=== PATIENT | female | born 1960 | race Caucasian/White ===

== ENCOUNTER 2017-02-21 23:50 | Emergency (ER) | payer SELFPAY ==
[2017-02-21 23:52] VITALS: BP 129/75; PULSE 117; RESP 20; TEMP 98.4; O2SAT 93; BMI 29.0
[2017-02-22] MEDS: Albuterol-Ipratrop 3 mg / 0.5 (3 ml) UD IH SCH ×3 (00:30→01:19)
[2017-02-22 00:41] LABS: ADD MANUAL DIFF? NO
[2017-02-22 00:50] LABS: BASO # 0.03 K/mm3 (0.0-2.0); BASO % 0.6 % (0.0-3.0); EOS # 0.2 (0.0-0.7); GRAN # 1.92 (1.4-6.5); GRAN % 39.9 % (50.0-68.0); HEMATOCRIT 38.7 % (36.0-48.0); LYMPH # 2.1 (1.2-3.4); LYMPH % 43.5 % (22.0-35.0); MEAN CELL VOLUME 86.4 fL (80.0-105.0); MEAN CORPUSCULAR HEMOGLOBIN 29.5 pg (25.0-35.0); MEAN CORPUSCULAR HGB CONC 34.1 g/dl (31.0-37.0); MEAN PLATELET VOLUME 9.8 fl (7.0-11.0); MONO # 0.5 (0.1-0.6); PLATELET COUNT 271 10^3/uL (120.0-450.0); RED CELL DISTRIBUTION WIDTH 13.6 % (11.5-14.5); WHITE BLOOD COUNT 4.8 10^3/ul (4.5-11.0)
[2017-02-22 01:00] LABS: ALKALINE PHOSPHATASE 102 U/L (38-133); ALT/SGPT 26 U/L (7-56); AST/SGOT 26 U/L (15-39); BILIRUBIN,TOTAL 0.8 mg/dL (0.2-1.3); BLOOD UREA NITROGEN 24 mg/dL (7-21); CALCIUM 9.3 mg/dL (8.4-10.5); CARBON DIOXIDE 28 mmol/L (21-33); CHLORIDE 102 mmol/L (98-107); GFR AFRICAN-AMERICAN > 60; GLUCOSE,RANDOM 152 mg/dL (70-110); LIPASE 128 U/L (23-300); POTASSIUM 4.1 mmol/L (3.6-5.0); SODIUM 140 mmol/L (132-148); TOTAL PROTEIN 8.1 g/dL (5.8-8.3)
[2017-02-22 01:13] LABS: TROPONIN I < 0.01 ng/mL
--- NOTE | 2017-02-22 02:29 | ED PDOC ---
Arrival/HPI - General Chief Complaint: Respiratory Distress Time Seen by Provider: 02/22/17 00:18 Historian: Patient EM Caveat: Language Barrier (Language line was used, supervisor dumping was provided to the patient) - History of Present Illness Narrative History of Present Illness (Text): 02/22/17 02:31 Patient past medical history of asthma, reports 2 history of dyspnea and wheezing despite treatment with Ventolin and Advair. Episode apparently precipitated by cough. (-) fever; (+) cough; (-) sputum production, (+) L sided chest pain. Patient has previous history of emergency department visits. Patient complains of 3 month history of intermittent left upper quadrant abdominal pain, most prominent today, states that she has seen her doctor regarding her symptoms was prescribed medication, which she is taking with no relief. States she was advised by her doctor to go to outpatient endoscopy which she is not scheduled yet, has not had an other diagnostic test such as an US or a CT. Otherwise: (-) vomiting, (-) diarrhea, (-) fever, (-) melena, (-) urinary symptoms, (-) hematochezia. Has no history of prior abdominal surgery. Past Medical History - Provider Review Nursing Documentation Reviewed: Yes - Reproductive Menopause: Yes - Cardiac Hx Cardiac Disorders: No - Pulmonary Hx Respiratory Disorders: Yes Hx Asthma: Yes - Neurological Hx Neurological Disorder: No - HEENT Hx HEENT Disorder: No - Renal Hx Renal Disorder: No - Endocrine/Metabolic Hx Endocrine Disorders: No - Hematological/Oncological Hx Blood Disorders: No - Integumentary Hx Dermatological Disorder: No - Musculoskeletal/Rheumatological Hx Musculoskeletal Disorders: No - Gastrointestinal Hx Gastrointestinal Disorders: No - Genitourinary/Gynecological Hx Genitourinary Disorders: No - Psychiatric Hx Psychophysiologic Disorder: No Hx Substance Use: No Family/Social History - Physician Review Nursing Documentation Reviewed: Yes Family/Social History: No Known Family HX Smoking Status: Never Smoked Hx Alcohol Use: No Hx Substance Use: No Allergies/Home Meds Allergies/Adverse Reactions: Allergies No Known Allergies Allergy (Verified 02/21/17 23:51) Home Medications: Home Meds Medication Instructions Recorded Confirmed Albuterol HFA [Ventolin HFA 90 2 puff IH PRN PRN 02/21/17 02/21/17 mcg/actuation (8 g)] Review of Systems - Review of Systems Constitutional: Normal. absent: Fatigue, Weight Change, Fevers ENT: Normal, Hearing Changes. absent: Rhinorrhea, Sinus Congestion Respiratory: Normal, Cough. absent: SOB, Sputum, Wheezing Cardiovascular: Normal. absent: Chest Pain, Palpitations Gastrointestinal: Normal, Abdominal Pain. absent: Stool Changes, Appetite Changes Genitourinary Female: Normal. absent: Dysuria, Frequency, Hematuria Musculoskeletal: Normal. absent: Arthralgias, Back Pain, Neck Pain Skin: Normal. absent: Rash, Pruritis, Skin Lesions Physical Exam - Physical Exam Narrative Physical Exam (Text): 02/22/17 02:39 GENERAL APPEARANCE: Patient is awake, alert, oriented x 3, in mild respiratory and painful distress. SKIN: Warm, dry; (-) cyanosis. EYES: (-) conjunctival pallor. ENMT: Mucous membranes moist. Airway patent: (-) stridor. Pharynx: (-) swelling, (-) erythema. NECK: (-) tenderness, (-) stiffness, (-) lymphadenopathy. CHEST AND RESPIRATORY: (+) bilateral inspiratory and expiratory wheezing; (-) rales, (-) rhonchi, (-) rub; breath sounds equal bilaterally. HEART AND CARDIOVASCULAR: (-) irregularity; (-) murmur, (-) gallop. ABDOMEN AND GI: Soft; (+) LUQ tenderness, (-) guaridng, (-) rebound. EXTREMITIES: (-) deformity, (-) edema. NEURO AND PSYCH: Mental status as above; (-) focal findings. Vital Signs Temp Pulse Resp BP Pulse Ox 02/21/17 23:55 20 02/21/17 23:52 98.4 F 117 H 20 129/75 93 L Medical Decision Making ED Course and Treatment: 02/22/17 02:26 56 yo F with pmh of asthma, presents with wheezing, SOB, and abdominal pain. Plan: -- Labs -- IV fluids -- Urinalysis -- EKG -- CXR -- Solumedrol IV / duonebs x3 -- Reassess and disposition -- CT AP ordered 02/22/17 02:40 Labs reviewed, and are wnl. CXR shows NAD. On re-evaluation, patient reports feeling much improved with no chest pain or shortness of breath. Patient reports improvement of abdominal pain. On exam, lungs area clear, no wheezing, no rhonchi, no rales. Abdomen remains soft with mild LUQ tenderness, no guarding , no rebound. Considering patient's history and exam, CT of A/P w/ IV contrast will be ordered, however the patient is refusing. She states that she does not want to have the CT due to the contrast. A noncontrast CT of A/P was offered, but she still refused. She states that she feels that she does not need the CT at this time and she would rather follow up with her pmd. Patient refuses further care, evaluation or treatment in the ER. Patient informed of the reasons for the following and planned treatment, which patient understands, however still refuses. Patient informed of the risk and benefits of treatment. Informed that the risk could include worsening of current conditions, undiagnosed conditions, disability or even . Patient understands the following risk and the benefits of treatment. Patient has the capacity to make decisions and still refuses treatment by RN, PA and ER MD. Patient encouraged to return to the ER at any time and to follow up with pmd. - Lab Interpretations Lab Results: 02/22/17 00:35 02/22/17 00:35 Lab Results 02/22/17 00:35: Sodium 140, Potassium 4.1, Chloride 102, Carbon Dioxide 28, Anion Gap 14, BUN 24 H, Creatinine 1.1, Est GFR ( Amer) > 60, Est GFR ( Non-Af Amer) 51, Random Glucose 152 H, Calcium 9.3, Total Bilirubin 0.8, AST 26 , ALT 26, Alkaline Phosphatase 102, Lactate Dehydrogenase 436, Total Creatine Kinase 54, Troponin I < 0.01, Total Protein 8.1, Albumin 4.0, Globulin 4.1, Albumin/Globulin Ratio 1.0 L, Lipase 128 02/22/17 00:35: WBC 4.8, RBC 4.48, Hgb 13.2, Hct 38.7, MCV 86.4, MCH 29.5, MCHC 34.1, RDW 13.6, Plt Count 271, MPV 9.8, Gran % 39.9 L, Lymph % (Auto) 43.5 H, Cedar % (Auto) 11.0 H, Eos % (Auto) 5.0, Baso % (Auto) 0.6, Gran # 1.92, Lymph # 2.1, Cedar # 0.5, Eos # 0.2, Baso # 0.03 I have reviewed the lab results: Yes Interpretation: All labs normal - RAD Interpretation Narrative RAD Interpretations (Text): 02/22/17 02:44 CXR : NAD, as read by GEOVANY Radiology Orders: 02/22/17 00:24 CHEST PORTABLE [RAD] Stat - Medication Orders Current Medication Orders: Discontinued Medications Albuterol/Ipratropium (Duoneb 3 Mg/0.5 Mg (3 Ml) Ud) 3 ml IH Q15M [place] Stop: 02/22/17 01:01 Last Admin: 02/22/17 01:19 Dose: 3 ml Methylprednisolone (Solu-Medrol) 125 mg IVP STAT STA Stop: 02/22/17 00:24 Last Admin: 02/22/17 00:30 Dose: 125 mg - PA / 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 Disposition/Present on Arrival - Present on Arrival Any Indicators Present on Arrival: No History of DVT/PE: No History of Uncontrolled Diabetes: No Urinary Catheter: No History of Decub. Ulcer: No History Surgical Site Infection Following: None - Disposition Have Diagnosis and Disposition been Completed?: Yes Diagnosis: Asthma attack, Cough, Abdominal pain Disposition: AGAINST MEDICAL ADVICE Disposition Time: 02:27 Patient Plan: Other (Patient left AMA) Patient Problems: Current Active Problems Problem Status Onset Abdominal pain Acute Asthma attack Acute Cough Acute Condition: STABLE Discharge Instructions (ExitCare): Asthma (ED), Abdominal Pain (ED), Against Medical Advice (ED) Print Language: LITHUANIAN Additional Instructions: Thank you for letting us take care of you today. You were treated for asthma, cough, abdominal pain. The emergency medical care you received today was directed at your acute symptoms. If you were prescribed any medication, please fill it and take as directed. It may take several days for your symptoms to resolve. Return to the Emergency Department if your symptoms worsen, do not improve, or if you have any other problems. Please contact your doctor in 2 days for re-evaluation and follow up / or call one of the physicians/clinics you have been referred to that are listed on the Patient Visit Information form that is included in your discharge packet. Bring any paperwork you were given at discharge with you along with any medications you are taking to your follow up visit. Our treatment cannot replace ongoing medical care by a primary care provider (PCP) outside of the emergency department. Thank you for allowing the [facility] team to be part of your care today. Prescriptions: Albuterol 0.083% [Albuterol Sulfate 3 Ml] 3 ml IH Q4 #100 neb Azithromycin [Z-Deejay] 250 mg PO DAILY #6 tab Nebulizer [Aeroeclipse] 1 each MC PRN #1 each predniSONE [predniSONE Tab] 40 mg PO DAILY #8 tab Referrals: [facility] at [facility] [place] [Outside] - Follow up with primary Forms: MTDTS, WORK NOTE
--- NOTE | 2017-02-22 09:02 | RAD ---
HISTORY: SOB COMPARISON: No prior. FINDINGS: LUNGS: No focal airspace opacity. Please note that the right costophrenic angle was suboptimally imaged. PLEURA: No significant pleural effusion identified, no pneumothorax apparent. CARDIOVASCULAR: Normal. OSSEOUS STRUCTURES: No significant abnormalities. VISUALIZED UPPER ABDOMEN: Normal. OTHER FINDINGS: None. IMPRESSION: No focal airspace opacity. Suboptimal evaluation of the right costophrenic angle.
--- NOTE | 2017-02-22 10:05 | CARD ---
APPROVED REPORT EKG Measurement Heart [id number] <Conclusion> Normal sinus rhythm Normal ECG
== END 2017-02-22 03:24 | disposition left against medical advice (07) ==
LOC: ED 23:50
DX: J45.909 Unspecified asthma, uncomplicated (principal); R05 Cough; R10.9 Unspecified abdominal pain
CPT/HCPCS: 71010; 80053; 82550; 83615; 83690; 84484; 85025; 93005; 96374; 99284; J2930